=== PATIENT | female | born 1990 | race African-American/Black ===

== ENCOUNTER 2017-11-09 10:56 | Outpatient (CLI) | payer BC | END 2017-11-09 10:57 | disposition home or self-care (01) | LOC: LAB 10:56 | PROVIDERS: ATTEND Obstetrics & Gynecology | DX: Z34.92 Encounter for supervision of normal pregnancy, unspecified, second trimester (principal); Z3A.20 20 weeks gestation of pregnancy | CPT/HCPCS: 36415 ==

== ENCOUNTER 2018-01-14 13:34 | Outpatient (CLI) | payer BC | END 2018-01-14 16:36 | disposition home or self-care (01) | LOC: TRG 13:34 | PROVIDERS: ATTEND Obstetrics & Gynecology | DX: O47.03 False labor before 37 completed weeks of gestation, third trimester (principal); Z3A.39 39 weeks gestation of pregnancy | CPT/HCPCS: 86850; 86900; 86901; 96372; J2790 ==

== ENCOUNTER 2018-02-23 11:41 | Outpatient (CLI) | payer BC | END 2018-02-23 11:42 | disposition home or self-care (01) | LOC: LAB 11:41 | PROVIDERS: ATTEND Obstetrics & Gynecology | DX: Z34.93 Encounter for supervision of normal pregnancy, unspecified, third trimester (principal); O26.893 Other specified pregnancy related conditions, third trimester; Z3A.35 35 weeks gestation of pregnancy; J45.909 Unspecified asthma, uncomplicated | CPT/HCPCS: 87116; 87591 ==

== ENCOUNTER 2018-09-28 14:20 | Outpatient (CLI) | payer BC ==
[2018-09-28 14:40] LABS: Basophils % (Auto) 0.5 % (0.0-1.8); Eosinophils # (Auto) 0.3 K/mm3 (0.0-0.4); Hematocrit 36.4 % (30.3-42.9); Hemoglobin 12.6 gm/dl (10.1-14.3); Lymphocytes # (Auto) 3.7 K/mm3 (1.2-5.4); Mean Corpuscular HGB Conc 35 % (30-34); Mean Corpuscular Volume 84 fl (79-97); Monocytes # (Auto) 0.5 K/mm3 (0.0-0.8); Monocytes % (Auto) 4.1 % (0.0-7.3); Platelet Count 305 K/mm3 (140-440); Red Blood Count 4.32 M/mm3 (3.65-5.03); Red Cell Distribution Width 13.3 % (13.2-15.2)
== END 2018-09-28 14:21 | disposition home or self-care (01) ==
LOC: LAB 14:20
PROVIDERS: ATTEND Obstetrics & Gynecology
DX: D64.9 Anemia, unspecified (principal); R94.6 Abnormal results of thyroid function studies; J45.909 Unspecified asthma, uncomplicated; E66.9 Obesity, unspecified
CPT/HCPCS: 36415; 84436; 84443; 85025

== ENCOUNTER 2018-10-24 07:49 | Emergency (ER) | payer BC ==
[2018-10-24 08:44] LABS: Basophils % (Auto) 0.3 % (0.0-1.8); Eosinophils # (Auto) 0.2 K/mm3 (0.0-0.4); Hematocrit 35.5 % (30.3-42.9); Hemoglobin 11.7 gm/dl (10.1-14.3); Lymphocytes # (Auto) 2.7 K/mm3 (1.2-5.4); Lymphocytes % (Auto) 36.4 % (13.4-35.0); Mean Corpuscular HGB Conc 33 % (30-34); Mean Corpuscular Volume 85 fl (79-97); Monocytes # (Auto) 0.4 K/mm3 (0.0-0.8); Monocytes % (Auto) 4.8 % (0.0-7.3); Platelet Count 341 K/mm3 (140-440); Red Blood Count 4.17 M/mm3 (3.65-5.03); Red Cell Distribution Width 13.4 % (13.2-15.2)
--- NOTE | 2018-10-24 09:21 | Emergency Department Report ---
ED Female HPI - General Chief complaint: Vaginal Bleeding Stated complaint: HEAVY BLEEDING Time Seen by Provider: 10/24/18 08:58 Source: patient Mode of arrival: Ambulatory Limitations: No Limitations - History of Present Illness Initial comments: This is a 28-year-old female nontoxic, well nourished in appearance, no acute signs of distress presents to the ED with c/o of vaginal bleeding x8 days. Patient stated that she started control and after that started to have heavy vaginal bleeding. Patient denies any abdominal or pelvic pain. Patient denies any vaginal discharge or foul odor. Patient denies any nausea, vomiting, chest pain, shortness of breathe, fever, chills, headache, stiff neck, numbness, tingling. Patient denies any urinary symptoms. Patient denies any allergies or PMH. MD Complaint: vaginal bleeding -: days(s) (8) Severity scale (0 -10): 0 Improves with: none Worsens with: none Are you Now?: No Associated Symptoms: vaginal bleeding. denies: vaginal discharge, abdominal pain, nausea/vomiting, fever/chills, headaches, loss of appetite, dysuria, hematuria, rash, seizure, shortness of breath, syncope, weakness - Related Data Home Medications Medication Instructions Recorded Confirmed Last Taken Folic Acid [Folvite] 1 tab PO DAILY 01/14/18 03/31/18 03/29/18 [id number]/Iron/Folic Acid/Dha 1 caplet PO DAILY 01/14/18 03/31/18 03/29/18 [Prena1 Harini Softgel] Previous Rx's Medication Instructions Recorded Last Taken Type Ibuprofen [Motrin] 800 mg PO Q8HR PRN #30 tablet 04/02/18 Unknown Rx oxyCODONE /ACETAMINOPHEN [Percocet 1 tab PO Q6HR PRN #40 tablet 04/02/18 Unknown Rx 5/325] Ibuprofen [Motrin] 600 mg PO Q8H PRN #20 tablet 10/24/18 Unknown Rx Allergies Allergy/AdvReac Type Severity Reaction Status Date / Time No Known Allergies Allergy Unverified 01/14/18 16:15 ED Review of Systems ROS: Stated complaint: HEAVY BLEEDING Other details as noted in HPI Constitutional: denies: chills, fever Eyes: denies: eye pain, eye discharge, vision change ENT: denies: ear pain, throat pain Respiratory: denies: cough, shortness of breath, wheezing Cardiovascular: denies: chest pain, palpitations Endocrine: no symptoms reported Gastrointestinal: denies: abdominal pain, nausea, diarrhea Genitourinary: abnormal menses. denies: urgency, dysuria, discharge Musculoskeletal: denies: back pain, joint swelling, arthralgia Skin: denies: rash, lesions Neurological: denies: headache, weakness, paresthesias Psychiatric: denies: anxiety, depression Hematological/Lymphatic: denies: easy bleeding, easy bruising ED Past Medical Hx - Past Medical History Hx Hypertension: No Hx Diabetes: No Hx Deep Vein Thrombosis: No Hx Renal Disease: No Hx Sickle Cell Disease: No Hx Seizures: No Hx Asthma: Yes (no recent exacerbations) Hx HIV: No - Surgical History Past Surgical History?: Yes Additional Surgical History: C section - Social History Smoking Status: Never Smoker Substance Use Type: None - Medications Home Medications: Home Medications Medication Instructions Recorded Confirmed Last Taken Type Folic Acid [Folvite] 1 tab PO DAILY 01/14/18 03/31/18 03/29/18 History [id number]/Iron/Folic Acid/Dha 1 caplet PO DAILY 01/14/18 03/31/18 03/29/18 History [Prena1 Harini Softgel] Ibuprofen [Motrin] 800 mg PO Q8HR PRN #30 tablet 04/02/18 Unknown Rx oxyCODONE /ACETAMINOPHEN [Percocet 1 tab PO Q6HR PRN #40 tablet 04/02/18 Unknown Rx 5/325] Ibuprofen [Motrin] 600 mg PO Q8H PRN #20 tablet 10/24/18 Unknown Rx ED Physical Exam - General Limitations: No Limitations General appearance: alert, in no apparent distress - Head Head exam: Present: atraumatic, normocephalic - Neck Neck exam: Present: normal inspection, full ROM. Absent: tenderness, meningismus, lymphadenopathy - Respiratory Respiratory exam: Present: normal lung sounds bilaterally. Absent: respiratory distress, wheezes, rales, rhonchi, stridor, chest wall tenderness, accessory muscle use, decreased breath sounds, prolonged expiratory - Cardiovascular Cardiovascular Exam: Present: regular rate, normal rhythm, normal heart sounds. Absent: bradycardia, tachycardia, irregular rhythm, systolic murmur, diastolic murmur, rubs, gallop - GI/Abdominal GI/Abdominal exam: Present: soft, normal bowel sounds. Absent: distended, tenderness, guarding, rebound, rigid, diminished bowel sounds - Extremities Exam Extremities exam: Present: normal inspection, full ROM - Back Exam Back exam: Present: normal inspection, full ROM. Absent: tenderness, CVA tenderness (R), CVA tenderness (L), muscle spasm, paraspinal tenderness, vertebral tenderness, rash noted - Neurological Exam Neurological exam: Present: alert, oriented X3 - Psychiatric Psychiatric exam: Present: normal affect, normal mood - Skin Skin exam: Present: warm, dry, intact, normal color. Absent: rash ED Course Vital Signs 10/24/18 08:06 Temperature 97.5 F L Pulse Rate 80 Respiratory 16 Rate Blood Pressure 115/73 O2 Sat by Pulse 99 Oximetry - Reevaluation(s) Reevaluation #1: 10/24/18 09:33 Patient is speaking in full sentences with no signs of distress noted. ED Medical Decision Making - Lab Data Result diagrams: 10/24/18 08:28 - Medical Decision Making This is a 28-year-old female presents with dysfunctional uterine bleeding. Patient is stable and was examined by me. Normal abdominal exam. US pelvic/transvaginal obtained and dictated by the radiologist. Ua obtained. Quantative serum test obtained. Patient notified of the US report with no questions noted by the patient. Patient was instructed f/u with [facility] in 3-5 days. Labs within normal limits. At time of discharge, the patient does not seem toxic or ill in appearance. No acute signs of distress noted. Patient agrees to discharge treatment plan of care. No further questions noted by the patient. Critical care attestation.: If time is entered above; I have spent that time in minutes in the direct care of this critically ill patient, excluding procedure time. ED Disposition Clinical Impression: Dysfunctional uterine bleeding Disposition: DC-01 TO HOME OR SELFCARE Is pt being admited?: No Does the pt Need Aspirin: No Condition: Stable Instructions: Dysfunctional Uterine Bleeding (ED) Additional Instructions: Follow-up with a OBGYN doctor in 3-5 days or if symptoms worsen and continue return to emergency room as soon as possible. Prescriptions: Ibuprofen [Motrin] 600 mg PO Q8H PRN #20 tablet PRN Reason: Pain Referrals: THOMASTON LUC ANDERSON MD [Primary Care Provider] - 3-5 Days PRIMARY CAREM[facility] [Referring] - 3-5 Days ERROL FLYNN MD [Staff Physician] - 3-5 Days [facility] [Provider [facility]] - 3-5 Days Forms: Work/School Release Form(ED)
[2018-10-24 09:40] LABS: Bilirubin,Urine NEG (Negative); Blood,Urine LG (Negative); Color,Urine Yellow (Yellow); Protein,Urine <15 mg/dL mg/dL (Negative); Urobilinogen,Urine < 2.0 mg/dL (<2.0)
[2018-10-24 09:44] LABS: RBC,Urine > 182.0 /HPF (0.0-6.0)
--- NOTE | 2018-10-24 12:04 | Ultrasound Report ---
PROCEDURE: US PELVIC COMPLETE TECHNIQUE: Real-time transabdominal sonography in multiple planes of the pelvis was performed. The p elvic structures, especially the ovaries, were not optimally visualized. Transvaginal sonography was then performed to better evaluate the structures and/or abnormalities described below with image docu mentation. Spectral Doppler ultrasound imaging was also performed. HISTORY: vaginal bleedign COMPARISONS: None . FINDINGS: UTERUS Size: 7.1 x 4.0 x 3.7 cm. Endometrial thickness: 7.7 mm. Orientation: Retroverted. Cervix: Normal. Fibroids/masses: None. RIGHT Ovary: 3.0 x 1.8 x 2.7 cm. Appearance: Mildly complex lesion is seen within the right ovary measuring 1.7 cm. LEFT Ovary: 2.2 x 1.9 x 2.1 cm. Appearance: Mildly complex lesion is seen within the left ovary measuring 1.2 cm. Doppler: Normal arterial and venous waveforms were seen to the ovaries. Pelvic fluid: None. Other: None. IMPRESSION: 1. Normal uterus. 2. Mildly complex lesions within the ovaries may represent degenerating corpus luteal cysts versus he morrhagic cysts or endometriomas. Recommend follow-up pelvic ultrasound in 6-10 weeks. This document is electronically signed by Ashley Elise., October 24 2018 12:02:36 PM ET
[2018-10-24 12:24] VITALS: BP 126/75
== END 2018-10-24 12:21 | disposition home or self-care (01) ==
LOC: ED 07:49
DX: N93.8 Other specified abnormal uterine and vaginal bleeding (principal); J45.909 Unspecified asthma, uncomplicated; Z79.899 Other long term (current) drug therapy
CPT/HCPCS: 36415; 76830; 76856; 81001; 84702; 85025; 86850; 86900; 86901

== ENCOUNTER 2019-02-04 13:20 | Outpatient (CLI) | payer BC ==
--- NOTE | 2019-02-04 15:13 | Ultrasound Report ---
ULTRASOUND PELVIC COMPLETE ULTRASOUND TRANSVAGINAL HISTORY: Check for IUD location. IUD placed on 01/20/2019. COMPARISON: 10/24/2018 TECHNIQUE: Transabdominal and transvaginal ultrasound images with color Doppler interrogation. FINDINGS: Uterus: Normal size and echogenicity. No masses. Uterus measures 5.5 x 3.4 x 4.2 cm. Endometrium: Normal thickness measuring 10 mm. An intrauterine device is identified within the endom etrial canal. Right Ovary: Normal size, blood flow and appearance measuring 2.9 x 1.2 x 1.7 cm. Left Ovary: Normal size, blood flow and appearance measuring 3.0 x 1.6 x 2.5 cm. Additional findings: No pelvic fluid. IMPRESSION: Essentially unremarkable transabdominal and transvaginal pelvic ultrasounds. The IUD appears in good position. Signer Name: Luke Keyes Jr, MD Signed: 02/04/2019 3:08 PM Workstation Name: [id number]
== END 2019-02-04 13:21 | disposition home or self-care (01) ==
LOC: US 13:20
PROVIDERS: ATTEND Obstetrics & Gynecology
DX: Z30.430 Encounter for insertion of intrauterine contraceptive device (principal); J45.909 Unspecified asthma, uncomplicated; E66.9 Obesity, unspecified
CPT/HCPCS: 76830; 76856

== ENCOUNTER 2019-08-23 10:52 | Outpatient (CLI) | payer BC ==
[2019-08-23 11:29] LABS: Hemoglobin 13.9 gm/dl (10.1-14.3); Mean Corpuscular HGB Conc 33 % (30-34); Mean Corpuscular Volume 85 fl (79-97); Platelet Count 315 K/mm3 (140-440); Red Blood Count 4.93 M/mm3 (3.65-5.03); Red Cell Distribution Width 12.8 % (13.2-15.2)
[2019-08-23 11:59] LABS: Alanine Aminotransferase 27 units/L (7-56); Albumin 4.6 g/dL (3.9-5); BUN/Creatinine Ratio 14; Blood Urea Nitrogen 7 mg/dL (7-17); Calcium 10.3 mg/dL (8.4-10.2); Chol/HDL Ratio 4.17 %; HDL Cholesterol 45 mg/dL (40-59); Hemolysis Index 3; LDL Cholesterol,Direct 123 mg/dL (50-130)
--- NOTE | 2019-08-23 12:59 | XRay Report ---
CHEST 2 VIEWS INDICATION: BRONCHIAL ASTHMA. COMPARISON: 09/10/2016. FINDINGS: Support devices: None. Heart: Within normal limits. Lungs/Pleura: No acute air space or interstitial disease. No significant pleural effusion. IMPRESSION: No acute findings. Signer Name: Rick Valles MD Signed: 08/23/2019 12:54 PM Workstation Name: [employer]
== END 2019-08-23 10:53 | disposition home or self-care (01) ==
LOC: XRAY 10:52
PROVIDERS: ATTEND Internal Medicine
DX: J45.909 Unspecified asthma, uncomplicated (principal)
CPT/HCPCS: 36415; 71046; 80053; 80061; 82785; 84436; 84443; 85027

== ENCOUNTER 2019-11-12 11:13 | Emergency (ER) | payer BC ==
[2019-11-12 11:57] LABS: Bacteria,Urine 1+ /HPF (Negative); Bilirubin,Urine NEG (Negative); Blood,Urine SM (Negative); Color,Urine Amber (Yellow); Mucus,Urine FEW /HPF; Urobilinogen,Urine < 2.0 mg/dL (<2.0)
[2019-11-12 12:05] LABS: HCG Qualitative,Urine Negative (Negative); WBC,Urine > 182.0 /HPF (0.0-6.0)
[2019-11-12] MEDS ORDERED: LIDOCAINE-MPF (1%) 10 MG/1 ML VIAL 5 ML INFILTRATI ONE (12:25)
--- NOTE | 2019-11-12 12:33 | Emergency Department Report ---
ED Female HPI - General Chief complaint: Urogenital-Female Stated complaint: PAIN URINING Time Seen by Provider: 11/12/19 12:00 Source: patient Mode of arrival: Ambulatory Limitations: No Limitations - History of Present Illness Initial comments: Patient is a 29-year-old female presents emergency room with complaints of dysuria that began 4 days ago. She states that her primary care doctor prescribed her Bactrim and she has been taking it for 3 days. She has subjective fever and bilateral lower back pain. She denies any nausea, vomiting, abdominal pain, any other symptoms. She does not report any vaginal discharge or irritation. She has a past medical history of asthma. She denies any allergies to medications. - Related Data Home Medications Medication Instructions Recorded Confirmed Last Taken Folic Acid [Folvite] 1 tab PO DAILY 01/14/18 03/31/18 03/29/18 [id number]/Iron/Folic Acid/Dha 1 caplet PO DAILY 01/14/18 03/31/18 03/29/18 [Prena1 Harini Softgel] Previous Rx's Medication Instructions Recorded Last Taken Type Ibuprofen [Motrin] 800 mg PO Q8HR PRN #30 tablet 04/02/18 Unknown Rx oxyCODONE /ACETAMINOPHEN [Percocet 1 tab PO Q6HR PRN #40 tablet 04/02/18 Unknown Rx 5/325] Ibuprofen [Motrin] 600 mg PO Q8H PRN #20 tablet 10/24/18 Unknown Rx cephALEXin [Keflex] 500 mg PO BID 10 Days #20 cap 11/12/19 Unknown Rx Allergies Allergy/AdvReac Type Severity Reaction Status Date / Time No Known Allergies Allergy Unverified 01/14/18 16:15 ED Review of Systems ROS: Stated complaint: PAIN URINING Other details as noted in HPI Comment: All other systems reviewed and negative ED Past Medical Hx - Past Medical History Previous Medical History?: Yes Hx Hypertension: No Hx Diabetes: No Hx Deep Vein Thrombosis: No Hx Renal Disease: No Hx Sickle Cell Disease: No Hx Seizures: No Hx Asthma: Yes (no recent exacerbations) Hx HIV: No - Surgical History Past Surgical History?: No Additional Surgical History: C section - Social History Smoking Status: Never Smoker Substance Use Type: None - Medications Home Medications: Home Medications Medication Instructions Recorded Confirmed Last Taken Type Folic Acid [Folvite] 1 tab PO DAILY 01/14/18 03/31/1803/29/18 History Bnxruscj26/Iron/Folic Acid/Dha 1 caplet PO DAILY 01/14/18 03/31/18 03/29/18 History [Prena1 Harini Softgel] Ibuprofen [Motrin] 800 mg PO Q8HR PRN #30 tablet 04/02/18 Unknown Rx oxyCODONE /ACETAMINOPHEN [Percocet 1 tab PO Q6HR PRN #40 tablet 04/02/18 Unknown Rx 5/325] Ibuprofen [Motrin] 600 mg PO Q8H PRN #20 tablet 10/24/18 Unknown Rx cephALEXin [Keflex] 500 mg PO BID 10 Days #20 cap 11/12/19 Unknown Rx ED Physical Exam - General Limitations: No Limitations General appearance: alert, in no apparent distress - Head Head exam: Present: atraumatic, normocephalic - Eye Eye exam: Present: normal appearance - ENT ENT exam: Present: mucous membranes moist - Respiratory Respiratory exam: Present: normal lung sounds bilaterally. Absent: respiratory distress, wheezes, rales, rhonchi, stridor, chest wall tenderness, accessory muscle use, decreased breath sounds, prolonged expiratory - Cardiovascular Cardiovascular Exam: Present: normal rhythm, tachycardia (mild), normal heart sounds. Absent: systolic murmur, diastolic murmur, rubs, gallop - GI/Abdominal GI/Abdominal exam: Present: soft, normal bowel sounds. Absent: distended, tenderness, guarding, rebound, rigid - Back Exam Back exam: Absent: CVA tenderness (R), CVA tenderness (L) - Neurological Exam Neurological exam: Present: alert, oriented X3 - Psychiatric Psychiatric exam: Present: normal affect, normal mood - Skin Skin exam: Present: warm, dry, intact ED Course Vital Signs 11/12/19 11/12/19 11/12/19 11:16 13:07 13:34 Temperature 99.0 F Pulse Rate 111 H 112 H Respiratory 14 18 Rate Blood Pressure 128/86 132/68 O2 Sat by Pulse 97 99 99 Oximetry - Reevaluation(s) Reevaluation #1: 11/12/19 12:40 spoke with micro personnel Lora regarding need for urine culture she states she has a sample and will run it ED Medical Decision Making - Lab Data Lab Results 11/12/19 Range/Units Unknown Urine Color [place] (Yellow) Urine Turbidity Cloudy (Clear) Urine pH 6.0 (5.0-7.0) Ur Specific [place] 1.011 (1.003-1.030) Urine Protein 100 mg/dl (Negative) mg/dL Urine Glucose (UA) Neg (Negative) mg/dL Urine Ketones Neg (Negative) mg/dL Urine Blood Sm (Negative) Urine Nitrite Pos (Negative) Urine Bilirubin Neg (Negative) Urine Urobilinogen < 2.0 (<2.0) mg/dL Ur Leukocyte Esterase Lg (Negative) Urine WBC (Auto) > 182.0 H (0.0-6.0) /HPF Urine RBC (Auto) 20.0 (0.0-6.0) /HPF U Epithel Cells (Auto) 1.0 (0-13.0) /HPF Urine Bacteria (Auto) 1+ (Negative) /HPF Urine Mucus Few /HPF Urine HCG, Qual Negative (Negative) - Medical Decision Making Patient is a 29-year-old female presents emergency room with complaints of dysuria that began 4 days ago. She states that her primary care doctor prescribed her Bactrim and she has been taking it for 3 days. She has subjective fever and bilateral lower back pain. She denies any nausea, vomiting, abdominal pain, any other symptoms. She does not report any vaginal discharge or irritation. She has a past medical history of asthma. She denies any allergies to medications. Vitals with mild tachycardia, otherwise normal, patient is afebrile. No CVA tenderness or abdominal tenderness on palpation. UA shows evidence of significant UTI with greater than 182 white blood cells and large leukocyte esterase and nitrite positive. Patient's UTI is most likely resistant to Bactrim. Patient given 1 g of ceftriaxone while in the ED. Patient given prescription for Keflex. advised pt Please take medication as prescribed. Increase your water intake. please follow-up with your primary care doctor and have your urine retested for clearance of the bacteria. Return to the emergency room immediately for any new or worsening symptoms. Discussed with patient to return immediately if she began having high fevers, unable to tolerate by mouth intake including her antibiotics, abdominal pain, worsening back pain, etc. Critical care attestation.: If time is entered above; I have spent that time in minutes in the direct care of this critically ill patient, excluding procedure time. ED Disposition Clinical Impression: UTI (urinary tract infection) Qualifiers: Urinary tract infection type: acute cystitis Hematuria presence: with hematuria Qualified Code(s): N30.01 - Acute cystitis with hematuria Disposition: TO HOME OR SELFCARE Is pt being admited?: No Does the pt Need Aspirin: No Condition: Stable Instructions: Urinary Tract Infection in Women (ED) Additional Instructions: Please take medication as prescribed. Increase your water intake. please follow-up with your primary care doctor and have your urine retested for clearance of the bacteria. Return to the emergency room immediately for any new or worsening symptoms. Prescriptions: cephALEXin [Keflex] 500 mg PO BID 10 Days #20 cap Referrals: PRIMARY CARE, [Primary Care Provider] - 3-5 Days Time of Disposition: 12:32 Print Language: SOU[place] KOREAN
[2019-11-12 13:34] VITALS: BP 132/68
== END 2019-11-12 13:08 | disposition home or self-care (01) ==
LOC: ED 11:13
DX: N39.0 Urinary tract infection, site not specified (principal); J45.909 Unspecified asthma, uncomplicated; Z79.899 Other long term (current) drug therapy
CPT/HCPCS: 81001; 81025; 87086; 96372; 99282; J0696; 87076; 87186

== ENCOUNTER 2020-06-09 09:56 | Emergency (ER) | payer BC ==
[2020-06-09 10:20] VITALS: BP 136/77
--- NOTE | 2020-06-09 10:35 | Emergency Department Report ---
ED General Adult HPI - General Chief complaint: Dyspnea/Respdistress Stated complaint: SOB/CHEST DISCOMFORT/NO SMELL PUI?: Yes Time Seen by Provider: 06/09/20 10:31 Source: patient Mode of arrival: Ambulatory Limitations: No Limitations - History of Present Illness Initial comments: The patient was evaluated in the emergency department for symptoms described in the history of present illness. He/she was evaluated in the context of the global COVID-19 pandemic, which necessitated consideration that the patient might be at risk for infection with the virus that causes COVID-19. Institutional protocols and algorithms that pertain to the evaluation of patients at risk for COVID-19 are in a state of rapid change based on in formation released by regulatory bodies including the CDC and federal and state organizations. These policies and algorithms were followed during the patient's care in the emergency department. Please note that these policies, procedures and recommendations changed on a rapid basis. 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 Patient states that she tested negative last week. She complains now that she is having body aches loss of taste and smell chest discomfort and chest discomfort with deep breath. Patient states that she had a fever that resolved. She states that she had a headache for 5 days but has resolved since yesterday. History of asthma. Last menstrual period was July 27, 2020. Severity scale (0 -10): 4 - Related Data Home Medications Medication Instructions Recorded Confirmed Last Taken Folic Acid [Folvite] 1 tab PO DAILY 01/14/18 03/31/18 03/29/18 [id number]/Iron/Folic Acid/Dha 1 caplet PO DAILY 01/14/18 03/31/18 03/29/18 [Prena1 Harini Softgel] Previous Rx's Medication Instructions Recorded Last Taken Type Ibuprofen [Motrin] 800 mg PO Q8HR PRN #30 tablet 04/02/18 Unknown Rx oxyCODONE /ACETAMINOPHEN [Percocet 1 tab PO Q6HR PRN #40 tablet 04/02/18 Unknown Rx 5/325] Ibuprofen [Motrin] 600 mg PO Q8H PRN #20 tablet 10/24/18 Unknown Rx cephALEXin [Keflex] 500 mg PO BID 10 Days #20 cap 11/12/19 Unknown Rx Allergies Allergy/AdvReac Type Severity Reaction Status Date / Time No Known Allergies Allergy Unverified 01/14/18 16:15 ED Review of Systems ROS: Stated complaint: SOB/CHEST DISCOMFORT/NO SMELL Other details as noted in HPI ED Past Medical Hx - Past Medical History Previous Medical History?: Yes Hx Hypertension: No Hx Diabetes: No Hx Deep Vein Thrombosis: No Hx Renal Disease: No Hx Sickle Cell Disease: No Hx Seizures: No Hx Asthma: Yes (no recent exacerbations) Hx HIV: No - Surgical History Past Surgical History?: Yes Additional Surgical History: C section - Social History Smoking Status: Never Smoker Substance Use Type: None - Medications Home Medications: Home Medications Medication Instructions Recorded Confirmed Last Taken Type Folic Acid [Folvite] 1 tab PO DAILY 01/14/18 03/31/18 03/29/18 History Oksezker79/Iron/Folic Acid/Dha 1 caplet PO DAILY 01/14/18 03/31/18 03/29/18 History [Prena1 Harini Softgel] Ibuprofen [Motrin] 800 mg PO Q8HR PRN #30 tablet 04/02/18 Unknown Rx oxyCODONE /ACETAMINOPHEN [Percocet 1 tab PO Q6HR PRN #40 tablet 04/02/18 Unknown Rx 5/325] Ibuprofen [Motrin] 600 mg PO Q8H PRN #20 tablet 10/24/18 Unknown Rx cephALEXin [Keflex] 500 mg PO BID 10 Days #20 cap 11/12/19 Unknown Rx ED Physical Exam - General Limitations: No Limitations General appearance: alert, in no apparent distress - Head Head exam: Present: atraumatic, normocephalic - Eye Eye exam: Present: normal appearance - ENT ENT exam: Present: mucous membranes moist - Neck Neck exam: Present: normal inspection, full ROM - Respiratory Respiratory exam: Present: normal lung sounds bilaterally, chest wall tenderness. Absent: respiratory distress, wheezes, rhonchi, accessory muscle use - Cardiovascular Cardiovascular Exam: Present: regular rate, normal rhythm. Absent: systolic murmur, diastolic murmur, rubs, gallop - GI/Abdominal GI/Abdominal exam: Present: soft - Back Exam Back exam: Present: normal inspection, full ROM - Neurological Exam Neurological exam: Present: alert, oriented X3, normal gait - Psychiatric Psychiatric exam: Present: normal affect, normal mood - Skin Skin exam: Present: warm, dry, intact, normal color. 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 Patient states that she tested negative last week. She complains now that she is having body aches loss of taste and smell chest discomfort and chest discomfort with deep breath. Patient states that she had a fever that resolved. She states that she had a headache for 5 days but has resolved since yesterday. History of asthma. Last menstrual period was July 27, 2020. Increase your fluid intake. Please quarantine for the next 10 days. Take ibuprofen or Tylenol as needed. Return back to the emergency room if symptoms worsen. Critical care attestation.: If time is entered above; I have spent that time in minutes in the direct care of this critically ill patient, excluding procedure time. ED Disposition Clinical Impression: Viral syndrome Disposition: DC-01 TO HOME OR SELFCARE Is pt being admited?: No Does the pt Need Aspirin: No Condition: Stable Instructions: Viral Respiratory Infection, [id number] Additional Instructions: Your symptoms appear most consistent with a nonspecific viral syndrome. However, given this current pandemic, COVID-19 is in the differential of possibilities. Despite your previous negative COVID-19 test, I do recommend repeat outpatient Covid 19 testing. In the meantime, isolate/quarantine yourself and stay away from anyone who is elderly, immunocompromised or chronically ill. You can use ibuprofen every 6-8 hours and Tylenol every 4-8 hours, using the dosing on the back of the bottle, as needed for any fever or body aches. Return to the emergency department with any worsening of your symptoms, development of chest pain or shortness of breath, or with any acute distress. Referrals: JAZZ MADSEN MD [Referring] - 3-5 Days Forms: Work/School Release Form(ED)
== END 2020-06-09 10:40 | disposition home or self-care (01) ==
LOC: ED 09:56
DX: B34.9 Viral infection, unspecified (principal); J45.909 Unspecified asthma, uncomplicated; Z79.899 Other long term (current) drug therapy; Z98.890 Other specified postprocedural states
CPT/HCPCS: 99282

== ENCOUNTER 2020-09-17 10:54 | Outpatient (CLI) | payer BC ==
[2020-09-18 09:12] LABS: Basophils % (Auto) 0.3 % (0.0-1.8); Eosinophils # (Auto) 0.1 K/mm3 (0.0-0.4); Eosinophils % (Auto) 0.9 % (0.0-4.3); Hemoglobin 12.5 gm/dl (10.1-14.3); Lymphocytes # (Auto) 3.2 K/mm3 (1.2-5.4); Lymphocytes % (Auto) 29.9 % (13.4-35.0); Mean Corpuscular HGB Conc 35 % (30-34); Mean Corpuscular Volume 85 fl (79-97); Monocytes # (Auto) 0.6 K/mm3 (0.0-0.8); Monocytes % (Auto) 5.4 % (0.0-7.3); Platelet Count 305 K/mm3 (140-440); Red Blood Count 4.23 M/mm3 (3.65-5.03)
[2020-09-25 13:18] LABS: Hemoglobin A2 Prime SEE SCANNED RESULT; Hemoglobin Barts SEE SCANNED RESULT; Hemoglobin E SEE SCANNED RESULT; Hemoglobin G SEE SCANNED RESULT; Hemoglobin Lepore SEE SCANNED RESULT; Hemoglobin O-Arab SEE SCANNED RESULT; IEF Confirm SEE SCANNED RESULT; Sickle Solubility Test SEE SCANNED RESULT
[2020-09-25 13:19] LABS: HIV-1 Antibody Differentiation SEE SCANNED RESULT; HIV-2 Antibody Differentiation SEE SCANNED RESULT; Interpretation SEE SCANNED RESULT
== END 2020-09-17 10:55 | disposition home or self-care (01) ==
LOC: LAB 10:54
PROVIDERS: ATTEND Obstetrics & Gynecology
DX: Z12.4 Encounter for screening for malignant neoplasm of cervix (principal)
CPT/HCPCS: 36415; 85025; 86592; 86689; 86706; 86762; 86900; 86901; 87086

== ENCOUNTER 2021-01-14 09:47 | Outpatient (CLI) | payer BC ==
[2021-01-14 10:16] LABS: Basophils % (Auto) 0.2 % (0.0-1.8); Eosinophils # (Auto) 0.1 K/mm3 (0.0-0.4); Eosinophils % (Auto) 0.8 % (0.0-4.3); Hematocrit 35.1 % (30.3-42.9); Hemoglobin 11.9 gm/dl (10.1-14.3); Lymphocytes # (Auto) 2.6 K/mm3 (1.2-5.4); Lymphocytes % (Auto) 22.9 % (13.4-35.0); Mean Corpuscular HGB Conc 34 % (30-34); Mean Corpuscular Volume 86 fl (79-97); Monocytes # (Auto) 0.7 K/mm3 (0.0-0.8); Monocytes % (Auto) 5.8 % (0.0-7.3); Platelet Count 269 K/mm3 (140-440); Red Blood Count 4.06 M/mm3 (3.65-5.03); Red Cell Distribution Width 13.9 % (13.2-15.2)
[2021-01-14 11:26] LABS: Hepatitis B Surface Antigen Non-Reactive (Negative); Hepatitis C Virus Antibody Non-Reactive (NonReactive)
[2021-01-20 11:00] LABS: HIV-1 Antibody Differentiation SEE SCANNED RESULT; HIV-2 Antibody Differentiation SEE SCANNED RESULT
== END 2021-01-14 09:48 | disposition home or self-care (01) ==
LOC: LAB 09:47
PROVIDERS: ATTEND Obstetrics & Gynecology
DX: Z34.90 Encounter for supervision of normal pregnancy, unspecified, unspecified trimester (principal)
CPT/HCPCS: 36415; 80074; 82951; 85025; 86592; 86689; 87591

== ENCOUNTER 2021-01-23 11:14 | Outpatient (CLI) | payer BC | END 2021-01-23 16:18 | disposition home or self-care (01) | LOC: LAB 11:14 → APU 16:08 → LAB 16:18 | PROVIDERS: ATTEND Obstetrics & Gynecology | DX: O26.892 Other specified pregnancy related conditions, second trimester (principal); Z67.21 Type B blood, Rh negative; Z3A.26 26 weeks gestation of pregnancy | CPT/HCPCS: 86850; 86900; 86901; 96372; J2790 ==

== ENCOUNTER 2021-02-05 08:04 | Outpatient (CLI) | payer BC | END 2021-02-05 08:05 | disposition home or self-care (01) | LOC: LAB 08:04 | PROVIDERS: ATTEND Obstetrics & Gynecology | DX: Z13.1 Encounter for screening for diabetes mellitus (principal) | CPT/HCPCS: 36415; 82951 ==

== ENCOUNTER 2021-05-29 10:07 | Outpatient (CLI) | payer BC | END 2021-05-29 10:08 | disposition home or self-care (01) | LOC: LAB 10:07 | PROVIDERS: ATTEND Obstetrics & Gynecology | DX: Z13.1 Encounter for screening for diabetes mellitus (principal) | CPT/HCPCS: 36415; 82951 ==

== ENCOUNTER 2021-10-01 14:21 | Emergency (ER) | payer BC ==
[2021-10-01 14:48] VITALS: BP 132/85
--- NOTE | 2021-10-01 15:56 | Emergency Department Report ---
ED Female HPI - General Chief complaint: Urogenital-Female Stated complaint: BURN WHEN URINE Source: patient Mode of arrival: Ambulatory Limitations: No Limitations - History of Present Illness Initial comments: 31-year-old female presents to the ED complaining of low back pain with urinary frequency and urgency. She states that she has treated herself across the counter with azo with no improvement. She denies any vaginal bleeding ,vaginal discharge ,or abdominal pain at present. Patient is alert and oriented x3. No acute distress noted . No ill appearance. MD Complaint: dysuria, pelvic pain Onset/Timin -: week(s) Worsens with: urination Are you Now?: No Associated Symptoms: denies other symptoms - Related Data Home Medications Medication Instructions Recorded Confirmed Last Taken [id number]/Iron/Folic Acid/Dha 1 caplet PO DAILY 01/14/18 04/06/21 03/29/18 [Prena1 Harini Softgel] Previous Rx's Medication Instructions Recorded Last Taken Type Ibuprofen [Motrin] 800 mg PO Q8HR PRN #30 tablet 04/06/21 Unknown Rx oxyCODONE /ACETAMINOPHEN [Percocet 1 tab PO Q6HR PRN #30 tablet 04/06/21 Unknown Rx 5/325] Hyoscyamine Subl [Levsin Sl 0.125 0.125 mg SL Q6HR PRN 5 Days #20 tab 10/01/21 Unknown Rx TAB] levoFLOXacin [Levaquin] 750 mg PO QDAY 7 Days #7 tablet 10/01/21 Unknown Rx Allergies Allergy/AdvReac Type Severity Reaction Status Date / Time No Known Allergies Allergy Unverified 01/14/18 16:15 ED Review of Systems ROS: Stated complaint: BURN WHEN URINE Other details as noted in HPI Constitutional: fever. denies: chills Eyes: denies: eye pain, eye discharge, vision change ENT: denies: ear pain, throat pain Respiratory: denies: cough, shortness of breath, wheezing Cardiovascular: denies: chest pain, palpitations Endocrine: no symptoms reported Gastrointestinal: denies: abdominal pain, nausea, diarrhea Genitourinary: urgency, dysuria, frequency. denies: discharge Musculoskeletal: denies: back pain, joint swelling, arthralgia Skin: denies: rash, lesions Neurological: denies: headache, weakness, paresthesias Psychiatric: denies: anxiety, depression Hematological/Lymphatic: denies: easy bleeding, easy bruising ED Past Medical Hx - Past Medical History Hx Hypertension: No Hx Diabetes: Yes (diet controled) Hx Deep Vein Thrombosis: No Hx Renal Disease: No Hx Sickle Cell Disease: No Hx Seizures: No Hx Asthma: Yes (inhaler) Hx HIV: No - Surgical History Additional Surgical History: C section - Social History Smoking Status: Never Smoker - Medications Home Medications: Home Medications Medication Instructions Recorded Confirmed Last Taken Type [id number]/Iron/Folic Acid/Dha 1 caplet PO DAILY 01/14/18 04/06/21 03/29/18 History [Prena1 Harini Softgel] Ibuprofen [Motrin] 800 mg PO Q8HR PRN #30 tablet 04/06/21 Unknown Rx oxyCODONE /ACETAMINOPHEN [Percocet 1 tab PO Q6HR PRN #30 tablet 04/06/21 Unknown Rx 5/325] Hyoscyamine Subl [Levsin Sl 0.125 0.125 mg SL Q6HR PRN 5 Days #20 tab 10/01/21 Unknown Rx TAB] levoFLOXacin [Levaquin] 750 mg PO QDAY 7 Days #7 tablet 10/01/21 Unknown Rx ED Physical Exam - General Limitations: No Limitations General appearance: alert, in no apparent distress - Head Head exam: Present: atraumatic, normocephalic - Eye Eye exam: Present: normal appearance - ENT ENT exam: Present: mucous membranes moist - Neck Neck exam: Present: normal inspection - Respiratory Respiratory exam: Present: normal lung sounds bilaterally. Absent: respiratory distress - Cardiovascular Cardiovascular Exam: Present: regular rate, normal rhythm. Absent: systolic murmur, diastolic murmur, rubs, gallop - GI/Abdominal GI/Abdominal exam: Present: soft, normal bowel sounds - Extremities Exam Extremities exam: Present: normal inspection - Back Exam Back exam: Present: normal inspection - Neurological Exam Neurological exam: Present: alert, oriented X3 - Psychiatric Psychiatric exam: Present: normal affect, normal mood - Skin Skin exam: Present: warm, dry, intact, normal color. Absent: rash ED Course Vital Signs 10/01/21 14:43 Temperature 98.4 F Pulse Rate 97 H Respiratory 16 Rate Blood Pressure 132/85 [Left] O2 Sat by Pulse 98 Oximetry ED Medical Decision Making - Lab Data Abnormal Lab Results 10/01/21 Unknown Urine Color [place] Urine Turbidity Clear Urine pH 5.0 Ur Specific [employer] 1.012 Urine Protein <15 mg/dl Urine Glucose (UA) Neg Urine Ketones Neg Urine Blood Mod Urine Nitrite Pos Ur Reducing Substances Not Reportable Urine Bilirubin Neg Urine Ictotest Not Reportable Urine Urobilinogen 4.0 Ur Leukocyte Esterase Neg Urine WBC (Auto) 1.0 Urine RBC (Auto) 6.0 U Epithel Cells (Auto) 7.0 Urine Bacteria (Auto) 2+ Urine Mucus Few Urine HCG, Qual Negative - Medical Decision Making 31-year-old female presents to the ED complaining of low back pain with urinary frequency and urgency x 1 week. She states that she has treated herself across the counter with azo with no improvement. She denies any vaginal bleeding ,vaginal discharge ,or abdominal pain at present. Patient is alert and oriented x3. No acute distress noted . No ill appearance. Physical examination unremarkable. Urinalysis showed positive nitrates .moderate blood. We will treat patient for UTI Rechecked the patient is resting quietly quietly and comfortable and feeling better. I discussed the results of diagnostic study, my clinical impression and the plan for further treatment with the patient. Patient agrees with plan and discharge at this present time. All question addressed. I have given the patient instruction regarding a diagnosis ,expectation ,follow- up and return precaution. I explained to the patient that emergent condition may arise and to return to the ED for new worsen and any new persisting condition. I have explained the importance of following up with the primary care physician or referral physician listed below has instructed. The patient verbalized understanding of discharge instruction. Critical care attestation.: If time is entered above; I have spent that time in minutes in the direct care of this critically ill patient, excluding procedure time. ED Disposition Clinical Impression: Acute UTI (urinary tract infection) Disposition: HOME / SELF CARE / HOMELESS Is pt being admited?: No Does the pt Need Aspirin: No Condition: Stable Instructions: Antibiotic Medicine, Adult, [id number], Urinary Tract Infection, Adult, [id number] Additional Instructions: Take medication as prescribed Return to ED for any worsening symptom Prescriptions: levoFLOXacin [Levaquin] 750 mg PO QDAY 7 Days #7 tablet Hyoscyamine Subl [Levsin Sl 0.125 TAB] 0.125 mg SL Q6HR PRN 5 Days #20 tab PRN Reason: Spasms Referrals: [facility] [Provider Group] - 3-5 Days Time of Disposition: 16:37
[2021-10-01 15:59] LABS: Bacteria,Urine 2+ /HPF (Negative); Bilirubin,Urine NEG (Negative); Blood,Urine MOD (Negative); Color,Urine Amber (Yellow); HCG Qualitative,Urine Negative (Negative); Mucus,Urine FEW /HPF; Protein,Urine <15 mg/dL mg/dL (Negative)
== END 2021-10-01 17:17 | disposition home or self-care (01) ==
LOC: ED 14:21
DX: N39.0 Urinary tract infection, site not specified (principal); E11.9 Type 2 diabetes mellitus without complications; J45.909 Unspecified asthma, uncomplicated; Z98.890 Other specified postprocedural states
CPT/HCPCS: 81001; 81025; 99283

== ENCOUNTER 2021-10-21 11:50 | Outpatient (CLI) | payer BC ==
[2021-10-21 14:17] LABS: Alanine Aminotransferase 33 units/L (7-56); Albumin 4.4 g/dL (3.9-5); Blood Urea Nitrogen 8 mg/dL (7-17); Calcium 9.9 mg/dL (8.4-10.2); Hematocrit 40.3 % (30.3-42.9); Hemoglobin 13.2 gm/dl (10.1-14.3); Hemolysis Index 10; Mean Corpuscular HGB Conc 33 % (30-34); Mean Corpuscular Volume 85 fl (79-97); Platelet Count 327 K/mm3 (140-440); Red Blood Count 4.76 M/mm3 (3.65-5.03)
[2021-10-21 14:31] LABS: BUN/Creatinine Ratio 16
--- NOTE | 2021-10-21 15:15 | Vascular Lab Report ---
DUPLEX DOPPLER ULTRASOUND CAROTID, BILATERAL INDICATION / CLINICAL INFORMATION: R55.0 LOSS OF CONSCIOUSNESS/R42.1 DIZZINESS. COMPARISON: None available. FINDINGS: RIGHT CAROTID: No significant atherosclerotic plaque. - PLAQUE ESTIMATE (%): < 50% - CCA velocity: 110 cm/sec. - ICA peak systolic velocity: 96 cm/sec. - ICA/CCA PSV Ratio: Less than 2. Right Vertebral Artery: Antegrade flow. LEFT CAROTID: No significant atherosclerotic plaque. - PLAQUE ESTIMATE (%): < 50% - CCA velocity: 103 cm/sec. - ICA peak systolic velocity: 83 cm/sec. - ICA/CCA PSV Ratio: Less than 2. Left Vertebral Artery: Antegrade flow. IMPRESSION: 1. Right Internal Carotid Artery: Normal. No stenosis. 2. Left Internal Carotid Artery: Normal. No stenosis. Velocity criteria are extrapolated from diameter data as defined by the Society of Radiologists in [place] [employer] Consensus Conference, Radiology 2003; 229;340-346. NO STENOSIS (NORMAL) - Plaque = none; ICA PSV < 125 cm/sec; ICA/CCA PSV Ratio < 2.0 <50% STENOSIS - Plaque < 50%; ICA PSV < 125 cm/sec; ICA/CCA PSV Ratio < 2.0 50-69% STENOSIS - Plaque > 50%; ICA PSV = 125-230 cm/sec; ICA/CCA PSV Ratio = 2.0-4.0 >70% BUT <100% STENOSIS - Plaque > 50%; ICA PSV > 230 cm/sec; ICA/CCA PSV Ratio > 4.0 NEAR OCCLUSION - Plaque = visible lumen; ICA PSV = high/low/none; ICA/CCA PSV Ratio = variable TOTAL OCCLUSION - Plaque = no lumen; ICA PSV = none; ICA/CCA PSV Ratio = N/A Scribed by: Katharine Silva RDMS, RVT, RMSKS Scribed: 10/21/2021 2:02 PM I have reviewed the images, agree with this report, and edited this report as needed. Signer Name: Francisco Bauer MD Signed: 10/21/2021 3:11 PM Workstation Name: [id number]
== END 2021-10-21 11:51 | disposition home or self-care (01) ==
LOC: LAB 11:50
PROVIDERS: ATTEND Internal Medicine
DX: Z00.00 Encounter for general adult medical examination without abnormal findings (principal)
CPT/HCPCS: 36415; 80053; 82306; 82607; 83036; 84443; 85027; 93880